=== PATIENT | female | born 1955 ===

== ENCOUNTER 2018-02-07 01:15 | Inpatient (IN) | payer BC ==
[2018-02-06 08:25] LABS: INR 0.96
[2018-02-07] VITALS (30 sets, daily range): BP systolic 75–120; BP diastolic 44–86
[~2018-02-07] VITALS: Ht 154.9 cm; Wt 62.6 kg
[~2018-02-07 01:15] MED LIST: LORA10CA3 PO
[2018-02-07] MEDS ORDERED: ceFAZolin(*) 2GM/D5W 50ML 50 ML IVPB ONE (06:00)
[2018-02-07] MEDS ORDERED: MIDAZOLAM 2 MG/2 ML VIAL IVP PRN (06:00)
[2018-02-07] MEDS ORDERED: NORMOSOL R SOLN(*) 1000 ML BAG 1,000 ML IV PRN (06:00)
[2018-02-07] MEDS ORDERED: PREGABALIN 150 MG CAPSULE PO ONE (06:00)
[2018-02-07] MEDS ORDERED: FAMOTIDINE 20 MG TAB PO ONE (06:00)
[2018-02-07] MEDS ORDERED: ACETAMINOPHEN 500 MG TAB PO ONE (06:00)
[2018-02-07] MEDS ORDERED: LIDOCAINE/SOD BICARB 8.4% SYR ID ONE (06:00)
[2018-02-07] MEDS ORDERED: THROMBIN (BOVINE) 20,000 UNIT VIAL ONE ×2 (06:26→07:44)
[2018-02-07] MEDS ORDERED: REMIFENTANIL HCL 1 MG VIAL ONE (06:41)
[2018-02-07] MEDS ORDERED: NS(*) 0.9% 10 ML VIAL 10 ML ONE (06:44)
[2018-02-07] MEDS ORDERED: SUCCINYLCHOL CHL 200MG/10ML VL ONE (09:05)
[2018-02-07] MEDS ORDERED: PROPOFOL EMUL(*) 10MG/ML 20 ML 140 ML ONE (09:05)
[2018-02-07] MEDS ORDERED: ONDANSETRON 4 MG/2 ML VIAL ONE (09:05)
[2018-02-07] MEDS ORDERED: ROCURONIUM BROM 10 MG/ML 10 ML ONE (09:05)
[2018-02-07] MEDS ORDERED: DEXAMETHASONE SOD PHOS 10MG/ML ONE (09:05)
[2018-02-07] MEDS ORDERED: HYDROmorphone HCL 2 MG/ML SDV ONE ×2 (09:07→09:55)
--- NOTE | 2018-02-07 09:18 | RADIOLOGY IMAGING REPORT ---
FACILITY: [facility] PATIENT NAME: Mag Franklin : 1955 MR: [id number] V: [id number] EXAM DATE: ORDERING PHYSICIAN: BENJY CESAR TECHNOLOGIST: Location: [facility] Patient: Mag Franklin : 1955 Visit/Account:[id number] Date of Sevice: 02/07/2018 Lumbar spine one view HISTORY: Laminectomy. Fusion. FINDINGS: 2 intraoperative crosstable lateral images are obtained of the lumbar spine. On the first i mage, gauze material and surgical attachments overlie the dorsal soft tissues at the L3-L4 level. The re is anterolisthesis of L4 upon L5. On the second image, there are pedicle screws in place at L4 and L5. There are overlying surgical instruments. IMPRESSION: 1. Intraoperative lumbar images with findings as above. Report Dictated By: Car Perkins at 02/07/2018 9:03 AM Report E-Signed By: Car Perkins at 02/07/2018 9:13 AM WSN:[id number]
[2018-02-07] MEDS ORDERED: HYDROmorphone HCL 2 MG/ML SDV IVP PRN (11:10)
[2018-02-07] MEDS ORDERED: diphenhydrAMINE 25 MG CAP PO PRN (11:10)
[2018-02-07] MEDS ORDERED: APAP/HYDROCODONE 325/5 TAB PO PRN (11:10)
[2018-02-07] MEDS ORDERED: BENZOCAINE/MENTHOL 1 EACH LOZG PO PRN (11:10)
[2018-02-07] MEDS ORDERED: BISACODYL 10 MG SUPP PR PRN (11:10)
[2018-02-07] MEDS ORDERED: DIAZEPAM 5 MG TAB PO PRN (11:10)
[2018-02-07] MEDS ORDERED: ONDANSETRON 4 MG/2 ML VIAL IVP PRN (11:10)
[2018-02-07] MEDS ORDERED: oxyCODONE HCL 5 MG CAP PO PRN (11:10)
[2018-02-07] MEDS ORDERED: LR(*) 1000 ML BAG 1,000 ML IV PRN (11:10)
[2018-02-07] MEDS ORDERED: ACETAMINOPHEN 500 MG TAB PO PRN (11:10)
[2018-02-07] MEDS ORDERED: MAGNESIUM HYDROXIDE* 30ML UDCP PO PRN (11:10)
[2018-02-07] MEDS ORDERED: FLUSH 10 ML SYR IVP PRN (11:10)
[2018-02-07] MEDS ORDERED: ACETAMINOPHEN(*)1000 MG/100 ML 100 ML IVPB PRN (11:10)
--- NOTE | 2018-02-07 13:04 | OPERATIVE REPORT 1 ---
EVENT DATE: February 07, 2018 SURGEON: Nikolai Harris MD ANESTHESIOLOGIST: Chevy Rausch MD ANESTHESIA: General endotracheal COMMODITY MANAGER: SAUD Dobbs ONCOLOGY REP PREOPERATIVE DIAGNOSIS L4-L5 spinal stenosis with L4-L5 degenerative spondylolisthesis. POSTOPERATIVE DIAGNOSIS L4-L5 spinal stenosis with L4-L5 degenerative spondylolisthesis. PROCEDURE PERFORMED L4-L5 laminectomy with L4-L5 posterolateral instrumented fusion. IV FLUIDS 2100 mL. ESTIMATED BLOOD LOSS 150 mL. IMPLANTS 6.5 mm x 45 mm pedicle screws from [employer] x four, 5.5 mm x 40 mm connecting rods from [employer] x two, and locking caps from [employer] x four. SPECIMENS None. DRAINS None. COMPLICATIONS None. DISPOSITION Post anesthesia care unit. INDICATION FOR SURGERY Ms. Franklin is an active 62-year-old female who presented with chief complaint of bilateral lower extremity radiating pain, numbness, tingling, primarily in L5 distribution. In addition to this, she noted weakness and heaviness in her legs and resultant decreased walking tolerance. Her physician examination was essentially normal, but her imaging studies showed severe spinal stenosis at the L4-L5 level as well as L4-L5 degenerative spondylolisthesis. She failed physical therapy, medications, activity modifications and ultimately was offered L4-L5 laminectomy and fusion. She wished to proceed. Prior to surgery, I explained in detail to the patient the possible risks of surgery. This included the risk of bleeding, infection, damage to surrounding structures, nerve root injury, need for further surgery, spinal fluid leak, meningitis, , blindness, sexual dysfunction, autonomic nervous system dysfunction and other unforeseen medical and surgical complications. An understanding that spinal surgery is more predictive at improving extremity discomfort than axial spine pain was stressed. DESCRIPTION OF PROCEDURE On the day of surgery, the patient was met in the preoperative hold area, and all questions were answered. The operative site was identified and marked by myself. The patient was then brought in good condition to the operating room, and after succumbing to anesthesia, was placed in the prone position on a Eric table. All bony protuberances and soft tissues were well padded in the standard fashion. Care was taken to maintain appropriate perfusion pressures during anesthesia. Preoperative antibiotics were administered according to the appropriate timing schedule. At the conclusion of the procedure, sponge and needle count were correct x two. Final time out was undertaken by members of the operating team to confirm correct patient, correct levels and correct surgery. She was then prepped and draped in the standard sterile orthopedic fashion, and an incision was made over the intended spinal levels. Sharp dissection was carried out down to the posterior elements, and a lateral radiograph was obtained to confirm appropriate spinal levels. Soft tissues were elevated off the posterior elements in a subperiosteal manner at the L3, L4 and L5 levels. Starting points for pedicle screws were similarly cleared of soft tissue using electrocautery at approximately the junction of the pars interarticularis, the midpoint of the transverse process, and the lateral border of the superior articular process. The soft tissues were cleared from the transverse processes all the way out to the tips of the TPs. Thrombin-soaked sponges were placed in the lateral gutters. Attention was then turned to the decompression. The spinous process at L4 was removed with a rongeur, and thinned down the midline with a Leksell rongeur and a high-speed tommy. The canal was entered by teasing away the superior insertion of the ligamentum flavum from the inferior aspect of the L4 lamina. Care was taken to utilize the Yolo elevator to separate any dural adhesions from surrounding bone and soft tissue prior to use of the Kerrison punch. 4-0 Kerrison punch was used to perform midline decompression. Bilateral lateral recess decompressions were then performed using a combination of 3-0 and 4-0 Kerrison rongeurs. Once this was complete, the Yolo elevator as well as a Pinto probe were used to ensure that adequate decompression was performed in the lateral recesses and out the foramina of the involved nerve roots. Meticulous hemostasis was obtained, and attention was then turned to the fusion portion fo the procedure. Starting points for pedicle screws were identified bilaterally at L4 and L5. Cortical bone was removed using a high-speed tommy, and then a Lenke-type probe was advanced against resistance through the isthmus of the pedicle and into the vertebral bodies. Ball tip feeler was used to palpate superiorly, inferiorly, medially, laterally and distally within the prepared pedicles to ensure absence of bony breaching. 6.5 mm x 45 mm pedicle screws were chosen for both levels and inserted in standard fashion. Neurophysiologic monitoring was used to test these screws, and they all tested over 20 mA. The wound was then irrigated with copious sterile saline solution and rods were placed, and caps were then seated in the [facility] and tightened, and then finally tightened using a torque- limiting device. The transverse processes were then decorticated with a high- speed tommy, and a combination of local bone and demineralized bone matrix was packed into the lateral gutters spanning the L4 and L5 transverse processes. A radiograph was obtained to ensure appropriate placement of the instrumentation. The wound was then closed in layers using interrupted sutures for the deep fascia, inverted interrupted sutures for the subcutaneous tissue and then a running subcuticular skin stitch. Sponge and needle counts were correct x two. POSTOPERATIVE CARE PLAN Ms. Franklin will remain in the hospital until she passes PT and has good pain control. She will then be discharged home with instructions to follow up two weeks postoperatively for wound check and examination. JB
[2018-02-07] MEDS ORDERED: PHENYLEPHRINE 10 MG/1 ML VIAL ONE (14:03)
[2018-02-07] MEDS: ceFAZolin(*) 2GM/D5W 50ML 50 ML IVPB SCH ×2 (14:20→23:48)
[2018-02-07] MEDS: DOCUSATE SODIUM 100 MG CAP PO SCH (20:44)
[2018-02-08 03:08] VITALS: BP 90/62
[2018-02-08] MEDS: ceFAZolin(*) 2GM/D5W 50ML 50 ML IVPB SCH (06:14)
[2018-02-08] MEDS ORDERED: LOR5/325 PO (07:33)
[2018-02-08] MEDS ORDERED: DOCU240C84 PO (07:33)
[2018-02-08] MEDS ORDERED: DIA5 PO (07:36)
[2018-02-08 08:12] VITALS: BP 93/63
--- NOTE | 2018-02-08 08:35 | RADIOLOGY IMAGING REPORT ---
FACILITY: [facility] PATIENT NAME: Mag Franklin : 1955 MR: [id number] V: [id number] EXAM DATE: ORDERING PHYSICIAN: BENJY CESAR TECHNOLOGIST: Location: [facility] Patient: Mag Franklin : 1955 Visit/Account:[id number] Date of Sevice: 02/08/2018 Lumbar spine Indication: Back pain. Comparison: February 07, 2018 FINDINGS: 2 views of the lumbar spine were obtained. There are 5 lumbar type vertebral bodies. There is no acute osseous or acute alignment abnormality. Posterior L4-L5 fusion hardware without visualized hardware complication. The left L4 screw appears t o be somewhat superiorly located, along the superior endplate. Cannot exclude extension to the disc s pace. No evidence of spondylolisthesis or spondylolysis. The vertebral body heights appear well-maintained. Normal lumbar lordosis. Disc spaces are maintained. IMPRESSION: 1. Postoperative changes from L4-L5 posterior fusion without visualized complication although the lef t L4 screw appears to be somewhat superiorly located, along the superior endplate. 2. No visualized spondylolisthesis. Report Dictated By: Klever Samuels MD at 02/08/2018 8:29 AM Report E-Signed By: Klevre Samuels MD at 02/08/2018 8:32 AM WSN:[id number]
[2018-02-08] MEDS: DOCUSATE SODIUM 100 MG CAP PO SCH (09:33)
== END 2018-02-08 10:11 | disposition home or self-care (01) | DRG 460 ==
LOC: OR 01:15 → MED 10:55
PROVIDERS: ADMIT Orthopaedic Surgery; ATTEND Orthopaedic Surgery
PROC: 01NB0ZZ Release Lumbar Nerve, Open Approach (ICD-10-PCS; 2018-02-07)
PROC: 0SG0071 Fusion of Lumbar Vertebral Joint with Autologous Tissue Substitute, Posterior Approach, Posterior Column, Open Approach (ICD-10-PCS; principal; 2018-02-07 07:04)
DX: M48.062 Spinal stenosis, lumbar region with neurogenic claudication (principal); M43.16 Spondylolisthesis, lumbar region; M54.16 Radiculopathy, lumbar region
CPT/HCPCS: 36415; 72020; 72100; 85610; 86850; 86900; 86901; 97161; C1713; J0330; J0690; J1100; J1170; J2250; J2370; J2405; J2704